=== PATIENT | male | born 1950 | race Caucasian/White ===

== ENCOUNTER 2016-03-27 13:48 | Observation (INO) | payer MEDICARE, OTHER ==
[~2016-03-27] VITALS: Ht 172.7 cm; Wt 62.7 kg
[2016-03-27] VITALS (8 sets, daily range): BP systolic 101–143; BP diastolic 57–87; PULSE 55–86; RESP 16–18; O2SAT 96–100
[~2016-03-27 13:48] MED LIST: Propofol 10,000 mCg/mL 20 mL Inj ONE
--- NOTE | 2016-03-27 14:03 | ED.REPORT ---
HPI-General Illness Date of Service Mar 27, 2016 ED Provider: Preston Shaikh Patient is a 65 year old male who presents to the ED after being referred by his PCP complaining of possible esophageal food impaction. He reports that he was eating check and vegetables last night and was swallowing when he left like his food got stuck in the epigastric region. He reports that the vegetable came back up but the chicken didn't. He went to eat breakfast this morning and couldn 't swallow a boiled egg. When he tried to drink liquids after, he couldn't swallow them either. He is managing his saliva well. He denies chest pain, SOB, fever, or any other symptoms. Nursing Notes Stated Complaint: ENDOSCOPY Chief Complaint: ENT & Mouth Nursing Notes Reviewed: Yes Allergies: Coded Allergies: No Known Drug Allergies (Verified Allergy, Unknown, 03/27/16) Scheduled ([unknown HTN med]) Unknown Dose PO DAILY Aspirin (Aspirin) 81 Mg Tablet 81 MG PO DAILY Atorvastatin (Lipitor) 10 Mg Tab Unknown Dose PO DAILY General Time Seen by MD: 14:02 Chief Complaint Other (Dysphagia) Hx Obtained From: Patient Arrived By: Walk-in Sudden in Onset?: Yes Symptom Duration: Since onset Recent Healthcare: Recent doctor visit Similar Sx Previous: No Past Medical History Past Medical History Reports: GERD, Hyperlipidemia, Hypertension Past Surgical History Dental Reports: Tonsillectomy Smoking History Former Smoker Social History Alcohol Use: Denies alcohol use Review of Systems Full Review of Systems Constitutional: Denies: Fever Respiratory: Denies: Shortness of breath Cardiovascular: Denies: Chest pain GI: Reports: Dysphagia Complete sys rev & neg: except as marked. Physical Exam Vital Signs Vital Signs Date Time Temp Pulse Resp B/P Pulse Ox O2 Delivery O2 Flow Rate FiO2 03/27/16 13:57 36.2 98 18 140/87 98 Initial VS: Reviewed General/Constitutional: Well-developed, Well-nourished Head / Eyes: Atraumatic, Normocephalic Skin: Warm, Dry Neurologic: Alert, Oriented, Nonfocal Psychiatric: Mood/affect normal, Behavior normal, Normal thought content Respiratory / Chest: Breath sounds NL, Breath sounds = bilat, No respiratory distress Cardiovascular: Heart rate NL, Regular rhythm, Heart sounds NL, No gallop, No murmurs, No rubs Abdomen: BS normoactive Tenderness/Guarding/Rebound: Positive: Tender epigastric Interpretation & Diagnostics Lab Results Interpretation Test 03/27/16 14:30 Hold Purple Top Tube Received (Received) Hold Blue Top Tube Received (Received) Hold [place] Top Tube Received (Received) Hold Bet[place] Top Tube Received (Received) Re-Eval/Medical Decision Med Decision/Clinical Course GI consulted for endoscopy, airway is stable Time of Eval: 14:10 Re-Evaluation/Progress Note: Discussed plan to go to GI. Patient understands and agrees with plan. All questions addressed at this time. Consultation : Referral / Consult Name: Jelani Lemos MD Call Returned at: 14:15 Lean Facilitator: Will see patient, Agrees with eval, Agrees with plan Note: Discussed patient's case with GI. Will take him to Endo suite. Counseled Regarding: Diagnosis, Need for admission Discharge & Departure Primary Impression: Food impaction of esophagus Disposition: ADMITTED TO HOSPITAL Scribe Attestation Portions of this note were transcribed by Louie Juares. I, Dr. Shaikh personally performed the history, physical exam and medical decision-making; I reviewed and confirmed the accuracy of the information in the transcribed note. Signed by: Louie Juares 03/27/16, 1603 Preston Shaikh MD Mar 27, 2016 14:03 LOUIE JUARES Mar 27, 2016 14:24
[2016-03-27] MEDS ORDERED: [UNRECOGNIZED DRUG - REMARK] PO (14:31)
[2016-03-27] MEDS ORDERED: ATRV10T PO (14:31)
[2016-03-27] MEDS ORDERED: ASPI-973 PO (14:31)
[2016-03-27] MEDS ORDERED: Lactated Ringer's 1,000 ML IV ONE (16:02)
[2016-03-27] MEDS ORDERED: Lactated Ringer's 1,000 ML IV SCH (16:02)
--- NOTE | 2016-03-27 16:04 | PCM.HPANE ---
Patient Data Surgeon Admitting Provider: Attending Provider: Primary Care Physician:Sean Armendariz MD Other Provider: Reason for Visit Endoscopy Ht/WT & BMI Height (Feet): 5 Height (Inches): 8.00 Weight (Kilograms): 63.640 Body Mass Index 21.00 Allergies Coded Allergies: No Known Drug Allergies (Verified Allergy, Unknown, 03/27/16) Past Anesthesia History Anesthesia History: Denies:: Abnormal Airway, Anesthesia Reactions, Difficult Intubation, Fam Anesthesia Reaction, Fam Malignant Hypertherm, Malignant Hyperthermia Diabetes History Hx Diabetes?: No MRSA MRSA: No Medications Blood Thinner: Aspirin Last Dose Blood Thinner: Mar 26, 2016 Home Meds Incl Beta Fernando: No Reported Medications Aspirin 81 Mg [id number] Mg PO DAILY 03/27/16 [unknown HTN med] No Conflict CheckUnknown Dose PO DAILY 03/27/16 Atorvastatin (Lipitor)10 Mg TabUnknown Dose PO DAILY Ref 0 03/27/16 History HEENT History: Positive for:: Dysphagia (UNABLE TO CHEW WITH MISSING LOWER DENTURE) Denies:: Abnormal Airway Difficult Intubation Hearing Problem Denture Type: Full- Upper Full- Lower Teeth Condition: No Teeth Other HEENT Pertinent History: LOWER DENTURE NOT IN-NEEDING NEW ONES. HIS DOG CHEWED UP HIS LOWER DENTURE Hx of Heart Problems?: Yes Cardiovascular History: Positive for:: Hypertension Denies:: AICD Atrial Fibrillation Chest Pain Congestive Heart Failure Pacemaker Valvular Heart Disease Hx of Respiratory Problem?: No Respiratory History: Denies:: Asthma COPD Cough Hemoptysis Pneumonia Tuberculosis Neurological History: Denies:: CVA Hx of GI Problems?: Yes Gastrointestinal History: Positive for:: Gastroesphageal Reflux Denies:: Cirrhosis Diverticulitis Gall Bladder Disease Hiatal Hernia Liver Disease Rectal Bleeding Musculoskeletal History: Denies:: Fibromyalgia Joint Replacement Psycho Social History: Denies:: Anxiety Hx Depression Hx Surgeries?: Yes (TONSILLS, DENTAL ) Hx Any Other Health Problems?: No Hx Diabetes: No Hx Alcohol Use: NoHx Substance Use: No Smoking Status: Former Smoker Have You Smoked inLast 12 mo: No Stop/Bang Treated for Sleep Apnea?: No Do You Have a CPAP Machine?: No S-Snoring: Do You Snore Loudly: No T-Tired: feel tired, fatigued: No O-Obsered: Observed not breath: No P-Blood Pressure: treated: Yes B- Body Mass Index > 35 kg/m2: No A- Age over 50: Yes N- Neck Large Circumference: No G- Gender Male: Yes TANIA Total Score: 3 TANIA Risk Assessment: Low Risk, <3 Yes Risk Assessment Category Category 1A: Patient has history of documented sleep apnea, and HAS NOT received any narcotic, sedative or anesthesia administration during this stay. Category 1B: Patient has history of documented sleep apnea, and HAS received any narcotic , sedative or anesthesia administration during this stay Category 2: Patient has SUSPECTED Obstructive Sleep Apnea, and HAS received any narcotic , sedative or anesthesia administration during this stay. Category 3: Patient has SUSPECTED Obstructive Sleep Apnea and HAS NOT received narcotic, sedative or anesthesia administration during this stay. Category 4: Outpatient in Procedural Areas with known sleep apnea or who screen positive for High Risk via the STOP/BANG questionnaire. Exam Exam Vital Signs Vital Signs Date Time Temp Pulse Resp B/P Pulse Ox O2 Delivery O2 Flow Rate FiO2 03/27/16 15:29 37.4 65 16 125/71 100 Room Air 03/27/16 13:57 36.2 98 18 140/87 98 General Appearance: Oriented X3 HEENT/AIRWAY: MP 2 Lungs: Normal Air Movement Heart: Regular Rate/Rhythm Meds/Labs/Diagnostics Labs Test 03/27/16 14:30 Hold Bet[place] Top Tube Received (Received) Plan Impression Patient chart reviewed, patient interviewed and anesthestic plan with risks, benefits, and alternatives discussed, and informed consent obtained. ASA Physical Status: ASA2 Mod Systemic Disease Anesthetic Plan: MAC Bene/Risks/Altern/Consents: Yes HP Complete Prior to Induction: Yes Victor Manuel Zacarias MD Mar 27, 2016 16:04
[2016-03-27] MEDS ORDERED: Ondansetron 2 mg/mL 2 mL Inj IVPUSH PRN (16:05)
[2016-03-27] MEDS ORDERED: MetoCLOpramide 5 mg/mL 2 mL Inj IVPUSH PRN (16:05)
--- NOTE | 2016-03-27 16:33 | PCM.ENDEGD ---
EGD Date of Service: Mar 27, 2016 Physician Shayy Lemos Indication for Procedure food impaction Post Procedure Dx & Findings: esophageal ulcer and small bowel inflammation and erosion Procedure Esophagogastroduodenoscopy PROCEDURE IN DETAIL: The patient was placed in left lateral decubitus position. Bite block was placed. Scope lubricated, placed in posterior pharynx, passed through the cricopharyngeus and esophagus, slowly advanced the entire length of the gastric pouch, pylorus was identified, scope passed through the pylorus and descending portion of duodenum, withdrawn in the antrum, retroflexed upon itself for view of fundus and cardia. Scope was then withdrawn through the oropharynx. Esophagus was normal until the GE junction which showed benign appearing narrowing with moderate inflammation and 5 mm ulcer. Hoever, the scope easiy passed through it. Lumen is probably > 1.2 cm. These were probably due to food that was there earlier today. Stomach was normal without ulcer masses or erosion. Cardia fundus body antrum and pylorus was visualized. Stomach was easily inflatable and deflatable using air. Duodenum had edema small ulcer and erosions and swelling up to the 2nd portion of the duodenum. IMPRESSION Benign esophageal narrowing with edema and ulcer. Duodenitis and ulcer and erosions Recommendation Prilosec 40 mg po daily Pt will need dilation once ulcer heals and inflammation resolves. He can follow up with his [facility] GI in [place] in 2 weeks. For now full liquid diet for 1 week then soft diet until repeat EGD. Presedation Assessment Risks and Benefits Informed consent was obtained from the patient after all risks and benefits including but not limited to drug reaction, infection, pain, bleeding, perforation, as well as alternatives were discussed. Patient monitoring Continuous pulse oximetry, cardiac monitoring, blood pressure monitoring, IV access, and oxygen at 2L per nasal cannula. Complications There were no periprocedural complications identified. Post Procedure Plan Post Procedure Recommendations 1. Restrict activities today. 2. Resume normal activities in the morning. 3. Resume medications. 4. GERD behavioral modification: - Avoid fatty, acidic, spicy, large meals - Do not lie down after meals - Do not eat or drink anything for at least 2 1/2 hours before going to bed at night - Discontinue tobacco and alcohol - Decrease or avoid caffeine - Avoid chocolate and mints - Decrease weight - Avoid aspirin and non steroidal anti-inflammatory agents (NSAID) such as Aleve, Advil, Mobic, Naproxen, Ibuprofen, etc 5. Add proton pump inhibitor. Take 30 minutes before 1st meal of the day. 6. Patient informed of normal post procedure side effects as bloating, drowsiness, blood streaking in the stool 7. If gastric biopsy reveal H.pylori, continue with appropriate treatment 8. If small bowel biopsy reveals celiac, continue with appropriate treatment 9. Please don't hesitate to call me with any questions Jelani Lemos MD Mar 27, 2016 16:33
--- NOTE | 2016-03-27 17:24 | CONS ---
[address] [address] CONSULTATION REPORT PATIENT: BRII PICHARDO : 1950 MR#: [id number] ADMIT: 03/27/2016 JOB ID: [id number] DATE OF SERVICE: 03/27/2016 HISTORY OF PRESENT ILLNESS: It was a pleasure seeing the patient on the [facility] service. This is a 65-year-old gentleman who came in for a food impaction. Last night he was eating some chicken and vegetables and while he was eating felt like the food got stuck in the epigastric area. He stopped eating and he dry-heaved and he ended up vomiting vegetables, but the chicken did not come out. He felt better; he was able to handle his saliva and went to bed. He woke up this morning and felt hungry and had a boiled egg. He took a bite of it, he could not keep it down. It felt like it got stuck again. He dry-heaved and was able to pass the egg, but the chicken remained in the esophagus. Because of this he went to his primary care doctor, who contacted GI, who recommended an ED visit. When I saw him, he actually appeared comfortable. He denies any fevers, chills, headaches, blurry vision, dizziness, abdominal pain, nausea, vomiting, chest pain, or shortness of breath. PAST MEDICAL HISTORY: High blood pressure, reflux, GERD. PAST SURGICAL HISTORY: Tonsillectomy. SOCIAL HISTORY: Former smoker. Denies use of alcohol. PHYSICAL EXAMINATION: The patient was alert, oriented, and looked comfortable. Vital signs: Temperature 37.4, pulse 65, respirations 16, blood pressure 125/71. Head and neck: No icterus. Lungs: Clear. Cardiovascular: Regular rate and rhythm. Normal S1, S2. Abdomen: Soft, nontender, nondistended. With normoactive bowel sounds. Skin: No jaundice. Radial pulses bilaterally strong and intact. IMPRESSION: This is a gentleman who appeared to have a food impaction. He may have cleared it but it is not clearly obvious because he felt very well earlier today and when he was trying to eat he had a boiled egg that got stuck. It is possible that there could be chicken that is going and out of his esophagus; the chicken may be acting as a valve. Therefore, will proceed with the EGD. I spoke to him about the risks and benefits. The risks, of course, include bleeding, perforation requiring surgery, infection, missed lesion, heart/lung decompensation. If he has chicken stuck there, the risk of that causing ulceration, bleeding, aspiration is also significant. He agreed to proceed with the EGD.
--- NOTE | 2016-03-27 18:00 | NUR ---
admit pt arrived on unit from [facility] after an EDG. VS wnl, left arm IV, no complaints of pain. A&OX3. Pt did not have a ride after receiving propofol and had to be admitted.
--- NOTE | 2016-03-27 19:33 | PCM.HPMED ---
Subjective Date of Service Mar 27, 2016 Primary Provider: Admitting Physician: Primary Care Physician: Sean Armendariz MD Attending Physician: Jelani Lemos MD Chief Complaint: Observation after endoscopic procedure History of Present Illness: 65-year-old gentleman hypertension, reflux, GERD who came in for possible food impaction, referred by his PCP. pt was eating chicken and vegetables last night , and noticed food stuck sensation. pt underwent EGD late today in endoscopy suite, Benign esophageal narrowing with edema and ulcer. Duodenitis and ulcer and erosions found, plan for d/c then admitted to hospital as per the protocol after propofol being administered, require >6hrs observation , Patient denied any abdominal pain, nausea or vomiting, difficulty breathing cough at the moment. Review of Systems: Pertinent positives as noted in history of present illness. All other systems were reviewed and are negative Allergies Coded Allergies: No Known Drug Allergies (Verified Allergy, Unknown, 03/27/16) Home Medications Aspirin (Aspirin) 81 Mg Tablet 81 MG PO DAILY Atorvastatin (Lipitor) 10 Mg Tab Unknown Dose PO DAILY PMH PAST MEDICAL HISTORY: High blood pressure, reflux, GERD. PAST SURGICAL HISTORY: Tonsillectomy. SOCIAL HISTORY: Former smoker. Denies use of alcohol. Social History Hx Alcohol Use: No Hx Substance Use: No Smoking Status: Former Smoker Exam Vital Signs Vital Sign - Last Date Time Temp Pulse Resp B/P Pulse Ox O2 Delivery O2 Flow Rate FiO2 03/27/16 18:09 37.0 55 18 143/70 97 Room Air 03/27/16 16:30 3 Exam NAD, comfortably laying down on the bed no JVD, MMM, no LAD RRR, nl s1, s2 no mrg CTAB, no w,c S,ND,NT,normoactive BS+ warm, no edema, pulses 2/2 Assessment & Plan 65-year-old gentleman hypertension, reflux, GERD who came in for possible food impaction. here fore observation post anesthesia with propofol 1. Food stucking sensation secondary to Benign esophageal narrowing with edema and ulcer, Duodenitis and ulcer and erosions found on EGD, -Patient is clinically stable, there is no active medical concern at this moment , will observe on the floor overnight, discharged tomorrow morning with instructions given by GI, Recommendation from GI Prilosec 40 mg po daily Pt will need dilation once ulcer heals and inflammation resolves. He can follow up with his [facility] GI in [place] in 2 weeks. For now full liquid diet for 1 week then soft diet until repeat EGD. Post Procedure Recommendations 1. Restrict activities today. 2. Resume normal activities in the morning. 3. Resume medications. 4. GERD behavioral modification: - Avoid fatty, acidic, spicy, large meals - Do not lie down after meals - Do not eat or drink anything for at least 2 1/2 hours before going to bed at night - Discontinue tobacco and alcohol - Decrease or avoid caffeine - Avoid chocolate and mints - Decrease weight - Avoid aspirin and non steroidal anti-inflammatory agents (NSAID) such as Aleve, Advil, Mobic, Naproxen, Ibuprofen, etc 5. Add proton pump inhibitor. Take 30 minutes before 1st meal of the day. 6. Patient informed of normal post procedure side effects as bloating, drowsiness, blood streaking in the stool 7. If gastric biopsy reveal H.pylori, continue with appropriate treatment 8. If small bowel biopsy reveals celiac, continue with appropriate treatment 9. Please don't hesitate to call me with any questions Patient is admitted under observation status with expectation that she will be discharged within 24-48 hours, Time spent 35 minutes Michelle Pate MD Mar 27, 2016 19:33
--- NOTE | 2016-03-27 22:39 | NUR ---
Admit Patient admitted through endo department, admission assessment prior to arrival on [facility] [place], per charge poster.
[2016-03-28 06:02] VITALS: BP 111/62; PULSE 58; RESP 16; O2SAT 99
[2016-03-28] MEDS ORDERED: PANT40TA3 PO (07:27)
[2016-03-28] MEDS ORDERED: Pantoprazole 40 mg ER24 Tablet PO SCH (07:30)
--- NOTE | 2016-03-28 07:30 | PCM.DIMED ---
Discharge Instructions Date of Service Mar 28, 2016 Dates of Hospitalization Discharge Diagnosis Discharge Diagnosis Food stucking sensation secondary to Benign esophageal narrowing with edema and ulcer, Duodenitis and ulcer and erosions found on EGD, Medication Instructions please take [id number] every day Diet Other (liquid diet) Activity No restrictions Patient Instructions instruction for future provider and patient Recommendation from GI Prilosec 40 mg po daily Pt will need dilation once ulcer heals and inflammation resolves. He can follow up with his [facility] GI in [place] in 2 weeks. For now full liquid diet for 1 week then soft diet until repeat EGD. Post Procedure Recommendations 1. Restrict activities today. 2. Resume normal activities in the morning. 3. Resume medications. 4. GERD behavioral modification: - Avoid fatty, acidic, spicy, large meals - Do not lie down after meals - Do not eat or drink anything for at least 2 1/2 hours before going to bed at night - Discontinue tobacco and alcohol - Decrease or avoid caffeine - Avoid chocolate and mints - Decrease weight - Avoid aspirin and non steroidal anti-inflammatory agents (NSAID) such as Aleve, Advil, Mobic, Naproxen, Ibuprofen, etc 5. Add proton pump inhibitor. Take 30 minutes before 1st meal of the day. 6. Patient informed of normal post procedure side effects as bloating, drowsiness, blood streaking in the stool 7. If gastric biopsy reveal H.pylori, continue with appropriate treatment 8. If small bowel biopsy reveals celiac, continue with appropriate treatment 9. Please don't hesitate to call me with any questions Follow-up plan Please follow you with your primary GI doctor in 2weeks Follow-up Provider: Sean Armendariz MD Follow-up with PCP in: 2 weeks Michelle Pate MD Mar 28, 2016 07:30
--- NOTE | 2016-03-28 08:09 | NUR ---
Discharge Patient discharge to home at 0807. Explained to patient new medication (pantoprazole), when next dose is due, and discharge instructions. Patient verbalized understanding. Dc'd IV intact. Vitals stable. Patient left floor on his own with no signs of distress.
--- NOTE | 2016-03-28 08:53 | NUR ---
Social work-attempted assessment/ discharge: SW updated by RN that pt has already discharged home. Pt has been up independent. No discharge needs identified. Kortney Mesa MSW
--- NOTE | 2016-03-28 10:37 | NUR ---
Case Management: Patient was discharged prior to receiving Medicare Outpt/OBS notice and handout "How Medicare Covers Self-Administered Drugs Given in Hospital OUtpatient Settings". Twin Leahy RN
--- NOTE | 2016-03-28 12:53 | PCM.DC.MED ---
Discharge Summary Date of Service Mar 28, 2016 Dates of Hospitalization Date of Hospital Admission Mar 27, 2016 at 17:54 Date of Discharge: Mar 28, 2016 Providers: Admitting Physician: Jelani Lemos MD Primary Care Physician: Sean Armendariz MD Attending Physician: Jelani Lemos MD Diagnosis at Time of Discharge Diagnosis at Time of Discharge Food stucking sensation secondary to Benign esophageal narrowing with edema and ulcer, Duodenitis and ulcer and erosions found on EGD, Consultations Gastroenterology Procedures Other Diagnostics EGD Date of Service: Mar 27, 2016 Physician Shayy Lemos Indication for Procedure food impaction Post Procedure Dx & Findings: esophageal ulcer and small bowel inflammation and erosion Procedure Esophagogastroduodenoscopy PROCEDURE IN DETAIL: The patient was placed in left lateral decubitus position. Bite block was placed. Scope lubricated, placed in posterior pharynx, passed through the cricopharyngeus and esophagus, slowly advanced the entire length of the gastric pouch, pylorus was identified, scope passed through the pylorus and descending portion of duodenum, withdrawn in the antrum, retroflexed upon itself for view of fundus and cardia. Scope was then withdrawn through the oropharynx. Esophagus was normal until the GE junction which showed benign appearing narrowing with moderate inflammation and 5 mm ulcer. Hoever, the scope easiy passed through it. Lumen is probably > 1.2 cm. These were probably due to food that was there earlier today. Stomach was normal without ulcer masses or erosion. Cardia fundus body antrum and pylorus was visualized. Stomach was easily inflatable and deflatable using air. Duodenum had edema small ulcer and erosions and swelling up to the 2nd portion of the duodenum. IMPRESSION Benign esophageal narrowing with edema and ulcer. Duodenitis and ulcer and erosions Recommendation Prilosec 40 mg po daily Pt will need dilation once ulcer heals and inflammation resolves. [facility] [place] [facility] 2 weeks. For now full liquid diet for 1 week then soft diet until repeat EGD. Presedation Assessment Risks and Benefits Informed consent was obtained from the patient after all risks and benefits including but not limited to drug reaction, infection, pain, bleeding, perforation, as well as alternatives were discussed. Patient monitoring Continuous pulse oximetry, cardiac monitoring, blood pressure monitoring, IV access, and oxygen at 2L per nasal cannula. Complications There were no periprocedural complications identified. Post Procedure Plan Post Procedure Recommendations 1. Restrict activities today. 2. Resume normal activities in the morning. 3. Resume medications. 4. GERD behavioral modification: - Avoid fatty, acidic, spicy, large meals - Do not lie down after meals - Do not eat or drink anything for at least 2 1/2 hours before going to bed at night - Discontinue tobacco and alcohol - Decrease or avoid caffeine - Avoid chocolate and mints - Decrease weight - Avoid aspirin and non steroidal anti-inflammatory agents (NSAID) such as Aleve, Advil, Mobic, Naproxen, Ibuprofen, etc 5. Add proton pump inhibitor. Take 30 minutes before 1st meal of the day. 6. Patient informed of normal post procedure side effects as bloating, drowsiness, blood streaking in the stool 7. If gastric biopsy reveal H.pylori, continue with appropriate treatment 8. If small bowel biopsy reveals celiac, continue with appropriate treatment 9. Please don't hesitate to call me with any questions Jelani Lemos MD Mar 27, 2016 16:33 <Electronically signed by Jelani Lemos MD> 03/27/16 1633 Brief History H&P performed by 03/27 65-year-old gentleman hypertension, reflux, GERD who came in for possible food impaction, referred by his PCP. pt was eating chicken and vegetables last night , and noticed food stuck sensation. pt underwent EGD late today in endoscopy suite, Benign esophageal narrowing with edema and ulcer. Duodenitis and ulcer and erosions found, plan for d/c then admitted to hospital as per the protocol after propofol being administered, require >6hrs observation , Patient denied any abdominal pain, nausea or vomiting, difficulty breathing cough at the moment. Hospital Course 65-year-old gentleman hypertension, reflux, GERD who came in for possible food impaction. here fore observation post anesthesia with propofol 1. Food stucking sensation secondary to Benign esophageal narrowing with edema and ulcer, Duodenitis and ulcer and erosions found on EGD, -Patient was clinically stable, there is no active medical concern at this moment, patient was observed on the floor overnight, discharged home with instructions given by GI as below Recommendation from GI Prilosec 40 mg po daily Pt will need dilation once ulcer heals and inflammation resolves. He can [facility] [place] in 2 weeks. For now full liquid diet for 1 week then soft diet until repeat EGD. Post Procedure Recommendations 1. Restrict activities today. 2. Resume normal activities in the morning. 3. Resume medications. 4. GERD behavioral modification: - Avoid fatty, acidic, spicy, large meals - Do not lie down after meals - Do not eat or drink anything for at least 2 1/2 hours before going to bed at night - Discontinue tobacco and alcohol - Decrease or avoid caffeine - Avoid chocolate and mints - Decrease weight - Avoid aspirin and non steroidal anti-inflammatory agents (NSAID) such as Aleve, Advil, Mobic, Naproxen, Ibuprofen, etc 5. Add proton pump inhibitor. Take 30 minutes before 1st meal of the day. 6. Patient informed of normal post procedure side effects as bloating, drowsiness, blood streaking in the stool 7. If gastric biopsy reveal H.pylori, continue with appropriate treatment 8. If small bowel biopsy reveals celiac, continue with appropriate treatment 9. Please don't hesitate to call me with any questions Exam Vital Signs (Last) Date Time Temp Pulse Resp B/P Pulse Ox O2 Delivery O2 Flow Rate FiO2 03/28/16 06:02 36.7 58 16 111/62 99 Room Air 03/27/16 16:30 3 Exam NAD, comfortably laying down on the bed no JVD, MMM, no LAD RRR, nl s1, s2 no mrg CTAB, no w,c S,ND,NT,normoactive BS+ warm, no edema, pulses 2/2 Test 03/27/16 14:30 03/28/16 05:32 Hold Purple Top Tube Received (Received) Hold Blue Top Tube Received (Received) Hold Henderson Top Tube Received (Received) Hold Betts Top Tube Received (Received) Creatinine 0.84mg/dL (0.76-1.27) Discharge Medications Discharge Medications ([unknown HTN med]) Unknown Dose PO DAILY (Reported) Aspirin (Aspirin) 81 Mg Tablet 81 MG PO DAILY (Reported) Atorvastatin (Lipitor) 10 Mg Tab Unknown Dose PO DAILY (Reported) Pantoprazole (Pantoprazole DR) 40 Mg Tablet. 40 MG PO DAILYAC Prescribed by: MICHELLE SOTO MD Additional med instructions please take [id number] every day Followup Plan Disposition: Home Follow-up plan Please follow you with your primary GI doctor in 2weeks Discharge Diet: Other (liquid diet) Discharge Activity: No restrictions Patient Instructions instruction for future provider and patient Recommendation from GI Prilosec 40 mg po daily Pt will need dilation once ulcer heals and inflammation resolves. He can [facility] [place] in 2 weeks. For now full liquid diet for 1 week then soft diet until repeat EGD. Post Procedure Recommendations 1. Restrict activities today. 2. Resume normal activities in the morning. 3. Resume medications. 4. GERD behavioral modification: - Avoid fatty, acidic, spicy, large meals - Do not lie down after meals - Do not eat or drink anything for at least 2 1/2 hours before going to bed at night - Discontinue tobacco and alcohol - Decrease or avoid caffeine - Avoid chocolate and mints - Decrease weight - Avoid aspirin and non steroidal anti-inflammatory agents (NSAID) such as Aleve, Advil, Mobic, Naproxen, Ibuprofen, etc 5. Add proton pump inhibitor. Take 30 minutes before 1st meal of the day. 6. Patient informed of normal post procedure side effects as bloating, drowsiness, blood streaking in the stool 7. If gastric biopsy reveal H.pylori, continue with appropriate treatment 8. If small bowel biopsy reveals celiac, continue with appropriate treatment 9. Please don't hesitate to call me with any questions Follow-up Provider: Sean Armendariz MD Follow-up with PCP in: 2 weeks Time spent 65 minute Michelle Soto MD Mar 28, 2016 12:53
[2016-05-18] MEDS ORDERED: OMEP40CA36 PO (15:50)
[2016-05-18] MEDS ORDERED: LISI10TA PO (15:50)
== END 2016-03-28 08:08 | disposition home or self-care (01) ==
LOC: SED 13:48 → END 15:19 → MPC 17:54 → END 17:54 → MPC 03-28 08:08 → END 03-28 08:08
PROVIDERS: ADMIT Internal Medicine; ATTEND Internal Medicine
DX: K22.2 Esophageal obstruction (principal); K22.10 Ulcer of esophagus without bleeding; K52.9 Noninfective gastroenteritis and colitis, unspecified; K26.9 Duodenal ulcer, unspecified as acute or chronic, without hemorrhage or perforation; R13.19 Other dysphagia; I10 Essential (primary) hypertension; K21.9 Gastro-esophageal reflux disease without esophagitis; E78.5 Hyperlipidemia, unspecified; Z79.82 Long term (current) use of aspirin; Z87.891 Personal history of nicotine dependence
CPT/HCPCS: 36415; 43235; 82565; 99285; G0378; J7120

== ENCOUNTER 2016-05-21 08:11 | Day surgery (SDC) | payer MEDICARE, OTHER ==
[~2016-05-21] VITALS: Ht 172.7 cm; Wt 65.8 kg
[~2016-05-21 08:11] MED LIST changes: +ASPI-973 PO; +ATRV10T PO; +LISI10TA PO; +OMEP40CA36 PO; -Propofol 10,000 mCg/mL 20 mL Inj ONE; +Sodium Chloride LOK Flush 10 mL Syringe IV PRN; +fentaNYL-PF 50 mCg/mL 2 mL Inj IVPUSH PRN
[2016-05-21 08:39] VITALS: BP 120/72; PULSE 61; RESP 14; O2SAT 98
[2016-05-21] MEDS: 0.9% Sodium Chloride 1,000 ML IV SCH ×2 (09:29→09:39)
--- NOTE | 2016-05-21 09:42 | PCM.ENDEGD ---
EGD Date of Service: May 21, 2016 Physician Jelani Lemos MD Pre Procedure Diagnosis: Food impaction dysphagia Post Procedure Dx & Findings: Schatzki's ring Procedure Esophagogastroduodenoscopy PROCEDURE IN DETAIL: After proper sedation, Olympus video endoscope was inserted into patient's mouth and esophagus was successfully intubated. Scope introduced esophagus. Esophagus showed normal shiny whitish mucosa consistent with squamous cell component. GE junction was at 37 cm. There was a 2 cm hiatal hernia. In between the GE junction and a hiatal hernia was a partially obstructing Schatzki 's ring. Biopsy was probably about 11 mm. Scope easily go through. We dilated to 13.5 mm. First we took the balloon dilated to 12 mm and held for 30 seconds and then 13.5 mm and held it for 30 seconds. Afterwards, tearing noted at the Schatzki's ring. On the opposite side of the tear, we took a small biopsy. Scope further advanced to the stomach. Stomach showed normal shiny mucosa with normal appearing rugae folds without any ulcer mass erosion. Cardia fundus body antrum pylorus were all visualized. Retroflexion was done. Stomach was easily inflated and deflatable using air. Scope further events to the distal duodenum. Duodenum revealed normal villous structures with normal appearing folds without any mass ulcer erosion. Impression Dysphagia and history of food impaction Schatzki's ring status post biopsy and dilation to 13.5 mm 2 cm hiatal hernia Recommendation Continue PPI Presedation Assessment Risks and Benefits Informed consent was obtained from the patient after all risks and benefits including but not limited to drug reaction, infection, pain, bleeding, perforation, as well as alternatives were discussed. Patient monitoring Continuous pulse oximetry, cardiac monitoring, blood pressure monitoring, IV access, and oxygen at 2L per nasal cannula. Periprocedural Fentanyl: Fentanyl 100mcg Incrementally Midazolam: Midazolam 4mg Incrementally Complications There were no periprocedural complications identified. Post Procedure Plan Post Procedure Recommendations 1. Restrict activities today. 2. Resume normal activities in the morning. 3. Resume medications. 4. GERD behavioral modification: - Avoid fatty, acidic, spicy, large meals - Do not lie down after meals - Do not eat or drink anything for at least 2 1/2 hours before going to bed at night - Discontinue tobacco and alcohol - Decrease or avoid caffeine - Avoid chocolate and mints - Decrease weight - Avoid aspirin and non steroidal anti-inflammatory agents (NSAID) such as Aleve, Advil, Mobic, Naproxen, Ibuprofen, etc 5. Add proton pump inhibitor. Take 30 minutes before 1st meal of the day. 6. Patient informed of normal post procedure side effects as bloating, drowsiness, blood streaking in the stool 7. If gastric biopsy reveal H.pylori, continue with appropriate treatment 8. If small bowel biopsy reveals celiac, continue with appropriate treatment 9. Please don't hesitate to call me with any questions Jelani Lemos MD May 21, 2016 09:42
[2016-05-21 09:45] VITALS: BP 111/68; PULSE 70; RESP 16; O2SAT 94
[2016-05-21 09:55] VITALS: BP 107/64; PULSE 73; RESP 16; O2SAT 97
[2016-05-21 10:06] VITALS: BP 124/85; PULSE 69; RESP 16; O2SAT 100
--- NOTE | 2016-05-22 11:09 | PATH ---
SURGICAL PATHOLOGY Attending Physician:Jelani Lemos M.D. CASE STATUS: Signed Out PATIENT NAME: BRII PICHARDO JR PID: [id number] : 1950 DATE COLLECTED:05/21/2016 16:25 SPECIMEN: Esophagus, Biopsy CLINICAL HISTORY: 1). DISTAL ESOPHAGUS BIOPSY FINAL DIAGNOSIS: 1.DISTAL ESOPHAGUS BIOPSY: SQUAMOUS MUCOSA AND GASTRIC CARDIA-TYPE MUCOSA NEGATIVE FOR SPECIALIZED METAPLASIA OF RABAGO' S-TYPE ESOPHAGUS. Negative for dysplasia and malignancy. Eosinophils are not increased. ICD10 code K21.0 GROSS DESCRIPTION: The specimen is received in one formalin filled container labeled with the patient's name, sublabeled "distal esophagus" and consists of a 0.3 x 0.2 x 0.2 CM portion of tissue which is entirely submitted in one cassette. 05/21/2016 [facility] MICRO DESCRIPTION: See diagnosis. ICD-9 CODES: CPT CODES: 1: 89249 Electronically Signed Out Preston Rodriguez MD [facility] [address], [place] [address] Technical component performed at [facility], [facility] [address], [place], [address]
== END 2016-05-21 23:59 | disposition home or self-care (01) ==
LOC: END 08:11
PROVIDERS: ATTEND Internal Medicine
DX: K22.70 Barrett's esophagus without dysplasia (principal); K21.0 Gastro-esophageal reflux disease with esophagitis; K44.9 Diaphragmatic hernia without obstruction or gangrene; K22.2 Esophageal obstruction; K26.9 Duodenal ulcer, unspecified as acute or chronic, without hemorrhage or perforation; R13.10 Dysphagia, unspecified; Z79.82 Long term (current) use of aspirin
CPT/HCPCS: 43239; 43249; 88305; G0500; J2250; J3010; J7030